=== PATIENT | male | born 1950 | race Caucasian/White ===

== ENCOUNTER 2023-02-23 09:07 | Inpatient (IN) | payer MEDICARE, MEDICAID ==
[2023-02-23] MEDS ORDERED: Acetaminophen 650 MG Suppository ONE (09:44)
[2023-02-23] MEDS ORDERED: Piperacillin/Tazobactam 4.5 GM VIAL ONE (09:44)
[2023-02-23] MEDS ORDERED: Vancomycin 1 GM VIAL ONE (09:44)
[2023-02-23 10:04] LABS: Hemoglobin 10.8 g/dL (13.5-17.5); MDiff Complete? YES; Mean Corpuscular HGB CONC 31.5 g/dL (32.0-36.0); Mean Corpuscular Hemoglobin 28.2 pg (27.0-33.0); Mean Corpuscular Volume 89.6 fl (81.2-95.1); Mean Platelet Volume 10.1 fl (7.4-10.4); Platelet Count 271 10x3/uL (150-450); Red Blood Cell (RBC) Count 3.83 10x6/uL (4.32-5.72); White Blood Cell (WBC) Count 18.1 10x3/uL (3.5-10.5)
[2023-02-23 10:20] LABS: ALT (SGPT) 7 U/L (8-55); AST (SGOT) 14 U/L (5-34); Albumin 3.1 g/dL (3.4-4.8); Alkaline Phosphatase 67 U/L (40-110); Anion Gap 16 mmol/L (10-20); BUN (Urea Nitrogen) 38 mg/dL (8.4-25.7); Bilirubin, Total 0.3 mg/dL (0.2-1.2); Calc. Creatinine Clearance 0 mL/min (70-130); Calcium 10.1 mg/dL (7.8-10.44); Carbon Dioxide 21 mmol/L (23-31); Chloride 107 mmol/L (98-107); Estimated GFR 27; Globulin 3.2 g/dL (2.4-3.5); Glucose 243 mg/dL (83-110); Potassium 4.4 mmol/L (3.5-5.1); Protein, Total 6.3 g/dL (5.8-8.1); Sodium 140 mmol/L (136-145)
[2023-02-23 10:28] LABS: SARS-CoV-2 NAA Rapid Test Not Detected (NotDetected)
[2023-02-23 10:51] LABS: Bilirubin Neg (Negative); Blood, Urine Negative (Negative); Clarity Clear (Clear); Glucose, Urine (Dipstick) 100 mg/dL (Negative); Ketone, Urine Negative (Negative); Leukocyte Negative (Negative); Nitrite Negative (Negative); Protein, Urine (Dipstick) 15 mg/dl (Neg-Trace); Specific Gravity, Urine 1.015 (1.005-1.030); Urobilinogen Normal mg/dL (Less than 2)
[2023-02-23 11:15] LABS: Band 3 % (5-11); Eosinophils 1 % (0-10); Lymphocytes 19 % (21-51); Monocytes 13 % (0-10); Neutrophil 64 % (42-75); Platelet Morphology Comment Appears Adequate
[2023-02-23 11:16] LABS: Hypochromia SLIGHT = 6-15 cells (100X) (0-5/hpf)
[2023-02-23] MEDS ORDERED: Ondansetron PF 4 MG/2 ML Vial IVP PRN (12:09)
[2023-02-23] MEDS ORDERED: Acetaminophen 650 MG Suppository PR PRN (12:09)
[2023-02-23] MEDS ORDERED: Sodium Chloride 0.9% 1,000 ML IV SCH (12:15)
[2023-02-23] MEDS ORDERED: Dextrose 5% in Water 1,000 ML IV PRN (12:50)
[2023-02-23] MEDS ORDERED: HumaLOG 300 UNITS/3 ML VIAL SC PRN ×2 (12:50)
[2023-02-23] MEDS ORDERED: Dextrose 50% Abboject 50 ML SYRINGE SLOW IVP PRN (12:50)
[2023-02-23] MEDS ORDERED: Lactated Ringer's 2,000 ML IV SCH (13:00)
[2023-02-23] MEDS ORDERED: Piperacillin/Tazobactam 3.375 GM VIAL ONE (16:21)
[2023-02-23] MEDS: Piperacillin/Tazobactam 3.375 GM in Sodium Chloride 0.9% 100 ML IVPB SCH ×2 (16:41→21:55)
[2023-02-23 17:08] LABS: Strep pneumo Urine Ag NEGATIVE (NEGATIVE)
[2023-02-23] MEDS ORDERED: Piperacillin/Tazobactam 2.25 GM in Sodium Chloride 0.9% 100 ML IVPB SCH (18:00)
[2023-02-23] MEDS: Lactated Ringer's 1,000 ML IV SCH (19:05)
[2023-02-24 04:21] LABS: #Basophils 0.1 10x3/uL (0.0-0.2); #Eosinphils 0.9 10x3/uL (0.0-0.5); #Monocytes 1.6 10x3/uL (0.0-1.1); #Neutrophils 9.8 10x3/uL (1.5-8.4); %Basophils 0.5 % (0.0-2.0); %Eosinophils 6.4 % (0.0-6.0); %Lymphocytes 12.6 % (18.0-47.0); %Monocytes 11.4 % (0.0-10.0); %Neutrophils 68.5 % (40.0-75.0); Hemoglobin 10.5 g/dL (13.5-17.5); Mean Corpuscular HGB CONC 31.5 g/dL (32.0-36.0); Mean Corpuscular Hemoglobin 28.5 pg (27.0-33.0); Mean Corpuscular Volume 90.2 fl (81.2-95.1); Mean Platelet Volume 10.6 fl (7.4-10.4); Platelet Count 268 10x3/uL (150-450); RBC Distribution Width 15.1 % (11.5-14.5); Red Blood Cell (RBC) Count 3.69 10x6/uL (4.32-5.72); White Blood Cell (WBC) Count 14.3 10x3/uL (3.5-10.5)
[2023-02-24 04:50] LABS: ALT (SGPT) 9 U/L (8-55); AST (SGOT) 16 U/L (5-34); Albumin 2.9 g/dL (3.4-4.8); Alkaline Phosphatase 54 U/L (40-110); Anion Gap 16 mmol/L (10-20); BUN (Urea Nitrogen) 36 mg/dL (8.4-25.7); Bilirubin, Total 0.3 mg/dL (0.2-1.2); Calc. Creatinine Clearance 40 mL/min (70-130); Calcium 10.3 mg/dL (7.8-10.44); Carbon Dioxide 21 mmol/L (23-31); Chloride 109 mmol/L (98-107); Estimated GFR 29; Globulin 3.4 g/dL (2.4-3.5); Glucose 165 mg/dL (83-110); Potassium 4.4 mmol/L (3.5-5.1); Protein, Total 6.3 g/dL (5.8-8.1); Sodium 142 mmol/L (136-145)
[2023-02-24] MEDS: Piperacillin/Tazobactam 3.375 GM in Sodium Chloride 0.9% 100 ML IVPB SCH ×3 (06:10→21:24)
[2023-02-24] MEDS: Lactated Ringer's 1,000 ML IV SCH ×2 (06:11→13:10)
[2023-02-24] MEDS ORDERED: Acetaminophen 325 MG TAB PO PRN (08:53)
[2023-02-24] MEDS: Famotidine 20 MG TAB PO SCH (09:32)
[2023-02-24] MEDS: Amlodipine 5 MG TAB PO SCH (09:33)
[2023-02-24] MEDS: Cholecalciferol 1,000 UNITS (25 MCG) TAB PO SCH (09:33)
[2023-02-24] MEDS: Aspirin 81 mg Enteric Coated Tablet PO SCH (09:34)
[2023-02-24] MEDS: Ascorbic Acid 500 mg Chewable Tablet PO SCH (09:36)
[2023-02-24 11:37] LABS: Vancomycin, Random 13.2 ug/mL (See Comment)
[2023-02-24] MEDS ORDERED: Vancomycin Dose by Levels Sliding Scale (Wt > 99) FS SCH (11:45)
[2023-02-24] MEDS ORDERED: Vancomycin HCl 1 GM in Sodium Chloride 0.9% 250 ML 250 ML IVPB SCH (12:00)
[2023-02-24] MEDS ORDERED: Moisturizing Cream (Eucerin) 113 GM JAR TOP PRN (16:06)
[2023-02-24] MEDS ORDERED: Famotidine 20 MG TAB PO SCH (21:00)
[2023-02-24] MEDS: Chlorhexidine Gluconate 15 ML UDCUP SSP SCH (21:24)
[2023-02-24] MEDS: Vancomycin 1 GM in Premix Bag 1 BAG IVPB SCH (21:35)
[2023-02-25 04:00] LABS: #Basophils 0.1 10x3/uL (0.0-0.2); #Eosinphils 1.6 10x3/uL (0.0-0.5); #Monocytes 1.8 10x3/uL (0.0-1.1); #Neutrophils 6.1 10x3/uL (1.5-8.4); %Basophils 0.6 % (0.0-2.0); %Eosinophils 12.7 % (0.0-6.0); %Lymphocytes 21.7 % (18.0-47.0); %Monocytes 14.5 % (0.0-10.0); %Neutrophils 49.8 % (40.0-75.0); Hemoglobin 8.7 g/dL (13.5-17.5); Mean Corpuscular HGB CONC 31.9 g/dL (32.0-36.0); Mean Corpuscular Hemoglobin 28.7 pg (27.0-33.0); Mean Corpuscular Volume 90.1 fl (81.2-95.1); Platelet Count 242 10x3/uL (150-450); RBC Distribution Width 14.9 % (11.5-14.5); Red Blood Cell (RBC) Count 3.03 10x6/uL (4.32-5.72); White Blood Cell (WBC) Count 12.3 10x3/uL (3.5-10.5)
[2023-02-25 04:08] LABS: ALT (SGPT) 9 U/L (8-55); AST (SGOT) 16 U/L (5-34); Albumin 2.6 g/dL (3.4-4.8); Alkaline Phosphatase 40 U/L (40-110); Anion Gap 13 mmol/L (10-20); BUN (Urea Nitrogen) 31 mg/dL (8.4-25.7); Bilirubin, Total 0.2 mg/dL (0.2-1.2); Calc. Creatinine Clearance 46 mL/min (70-130); Calcium 9.8 mg/dL (7.8-10.44); Carbon Dioxide 22 mmol/L (23-31); Chloride 107 mmol/L (98-107); Estimated GFR 35; Globulin 2.6 g/dL (2.4-3.5); Glucose 94 mg/dL (83-110); Potassium 3.9 mmol/L (3.5-5.1); Protein, Total 5.2 g/dL (5.8-8.1); Sodium 138 mmol/L (136-145)
[2023-02-25] MEDS: Piperacillin/Tazobactam 3.375 GM in Sodium Chloride 0.9% 100 ML IVPB SCH ×3 (04:59→21:38)
[2023-02-25] MEDS: Lactated Ringer's 1,000 ML IV SCH ×2 (05:00→14:28)
[2023-02-25] MEDS: Ascorbic Acid 500 mg Chewable Tablet PO SCH (09:56)
[2023-02-25] MEDS: Amlodipine 5 MG TAB PO SCH (09:56)
[2023-02-25] MEDS: Famotidine 20 MG TAB PO SCH (09:57)
[2023-02-25] MEDS: Aspirin 81 mg Enteric Coated Tablet PO SCH (09:57)
[2023-02-25] MEDS: Cholecalciferol 1,000 UNITS (25 MCG) TAB PO SCH (09:58)
[2023-02-25] MEDS: Chlorhexidine Gluconate 15 ML UDCUP SSP SCH ×2 (10:08→21:39)
[2023-02-25] MEDS: Vancomycin HCl 1 GM in Sodium Chloride 0.9% 250 ML 250 ML IVPB SCH (12:41)
[2023-02-25] MEDS ORDERED: Cyanocobalamin (Vitamin B-12) 1,000 MCG TAB PO SCH (21:00)
[2023-02-25] MEDS ORDERED: Folic Acid 1 MG TAB PO SCH (21:00)
[2023-02-25] MEDS: hydrALAZINE 25 MG TAB PO SCH (21:37)
[2023-02-26 03:47] LABS: Anion Gap 12 mmol/L (10-20); BUN (Urea Nitrogen) 24 mg/dL (8.4-25.7); Calc. Creatinine Clearance 54 mL/min (70-130); Calcium 9.6 mg/dL (7.8-10.44); Carbon Dioxide 24 mmol/L (23-31); Chloride 106 mmol/L (98-107); Estimated GFR 42; Glucose 115 mg/dL (83-110); Sodium 138 mmol/L (136-145)
[2023-02-26 03:56] LABS: #Basophils 0.1 10x3/uL (0.0-0.2); #Eosinphils 1.9 10x3/uL (0.0-0.5); #Monocytes 1.5 10x3/uL (0.0-1.1); #Neutrophils 4.8 10x3/uL (1.5-8.4); %Basophils 0.8 % (0.0-2.0); %Eosinophils 16.9 % (0.0-6.0); %Lymphocytes 23.6 % (18.0-47.0); %Monocytes 13.7 % (0.0-10.0); %Neutrophils 43.9 % (40.0-75.0); Hemoglobin 8.8 g/dL (13.5-17.5); Mean Corpuscular HGB CONC 32.7 g/dL (32.0-36.0); Mean Corpuscular Hemoglobin 28.7 pg (27.0-33.0); Mean Corpuscular Volume 87.6 fl (81.2-95.1); Mean Platelet Volume 10.1 fl (7.4-10.4); Platelet Count 270 10x3/uL (150-450); RBC Distribution Width 14.8 % (11.5-14.5); Red Blood Cell (RBC) Count 3.07 10x6/uL (4.32-5.72)
[2023-02-26] MEDS: Piperacillin/Tazobactam 3.375 GM in Sodium Chloride 0.9% 100 ML IVPB SCH ×2 (05:09→16:26)
[2023-02-26] MEDS: Aspirin 81 mg Enteric Coated Tablet PO SCH (09:04)
[2023-02-26] MEDS: Famotidine 20 MG TAB PO SCH (09:05)
[2023-02-26] MEDS: Cholecalciferol 1,000 UNITS (25 MCG) TAB PO SCH (09:05)
[2023-02-26] MEDS: hydrALAZINE 25 MG TAB PO SCH (09:05)
[2023-02-26] MEDS: Lactated Ringer's 1,000 ML IV SCH (09:07)
[2023-02-26] MEDS: Ascorbic Acid 500 mg Chewable Tablet PO SCH (09:08)
[2023-02-26] MEDS: Chlorhexidine Gluconate 15 ML UDCUP SSP SCH (09:12)
[2023-02-26 11:46] LABS: Vancomycin, Trough 13.2 ug/mL
[2023-02-26] MEDS: Vancomycin HCl 1 GM in Sodium Chloride 0.9% 250 ML 250 ML IVPB SCH (12:56)
[2023-02-26 16:49] VITALS: BP 165/76; TEMP 97.8
== END 2023-02-26 16:35 | disposition home or self-care (01) | DRG 871 ==
LOC: CSHERS 09:07 → CSHERHOLD 12:16 → CSHTELE 17:49
PROVIDERS: ADMIT Family Medicine; ATTEND Internal Medicine
DX: A41.9 Sepsis, unspecified organism (principal); G92.8 Other toxic encephalopathy; J96.01 Acute respiratory failure with hypoxia; J69.0 Pneumonitis due to inhalation of food and vomit; N18.4 Chronic kidney disease, stage 4 (severe); L03.116 Cellulitis of left lower limb; N17.9 Acute kidney failure, unspecified; E44.0 Moderate protein-calorie malnutrition; E87.20 Acidosis, unspecified; F03.90 Unspecified dementia, unspecified severity, without behavioral disturbance, psychotic disturbance, mood disturbance, and anxiety; E11.22 Type 2 diabetes mellitus with diabetic chronic kidney disease; E78.5 Hyperlipidemia, unspecified; E78.00 Pure hypercholesterolemia, unspecified; I12.9 Hypertensive chronic kidney disease with stage 1 through stage 4 chronic kidney disease, or unspecified chronic kidney disease; R65.20 Severe sepsis without septic shock; Z20.822 Contact with and (suspected) exposure to COVID-19; Z68.29 Body mass index [BMI] 29.0-29.9, adult; Z87.891 Personal history of nicotine dependence
CPT/HCPCS: 36415; 36416; 70450; 71045; 80048; 80053; 80202; 81003; 83605; 83735; 84100; 84145; 84443; 85025; 86140; 87040; 87086; 87449; 87804; 87807; 93005; 94760; 94762; 97139; J2543; J3370; J3490; J7050; J7120; U0002